=== PATIENT | male | born 1945 | race Caucasian/White ===

== ENCOUNTER 2018-04-01 16:49 | Emergency (ER) | payer OTHER ==
--- NOTE | 2018-04-01 17:47 | ER ---
Nurse's Notes [facility] Name: Herberth Carrasco Age: 72 yrs Sex: Male : 1945 Arrival Date: 04/01/2018 Time: 16:53 Bed 9 Private MD: Diagnosis: Laceration without foreign body of left index finger without damage to nail-avulsion laceration Presentation: 04/01 17:05 Presenting complaint: Child states: Laceration to left index finger with screwdriver at hb 1030 today. Pt was sent from [facility] because laceration would not stop bleeding. Dressing is intact, clean, and dry. Transition of care: patient was not received from another setting of care. Complicating Factors: There are no complicating factors for this patient. Onset of symptoms was April 01, 2018. Risk Assessment: Do you want to hurt yourself or someone else? Patient reports no desire to harm self or others. Initial Sepsis Screen: Does the patient meet any 2 criteria? No. Patient's initial sepsis screen is negative. Does the patient have a suspected source of infection? No. Patient's initial sepsis screen is negative. Care prior to arrival: Bleeding of injury controlled. Injury dressed. 17:05 Method Of Arrival: Ambulatory hb 17:05 Acuity: GADIEL 4 hb Historical: - Allergies: 17:08 No Known Allergies; hb - Home Meds: 17:08 atorvastatin oral oral [Active]; hb - PMHx: 17:08 None; hb - PSHx: 17:08 None; hb - Immunization history:: Last tetanus immunization: < 5 years ago. - Social history:: Smoking status: Patient/guardian denies using tobacco. - Ebola Screening: : No symptoms or risks identified at this time. Screenin:33 Abuse screen: Denies threats or abuse. Denies injuries from another. Nutritional ss screening: No deficits noted. Tuberculosis screening: No symptoms or risk factors identified. Never had TB. Fall Risk None identified. Assessment: 17:33 General: Appears in no apparent distress. comfortable, Behavior is calm, cooperative. ss Pain: Complains of pain in dorsal aspect of middle phalanx of left index finger Pain currently is 3 out of 10 on a pain scale. Quality of pain is described as burning, tender, Is continuous. Neuro: Level of Consciousness is awake, alert, obeys commands, Oriented to person, place, time, situation. Cardiovascular: Capillary refill < 3 seconds is brisk in bilateral fingers Patient's skin is warm and dry. Pulses are palpable in right radial artery and left radial artery. Respiratory: Airway is patent Trachea midline Respiratory effort is even, unlabored, Respiratory pattern is regular, symmetrical. GI: Patient currently denies abdominal pain, nausea, vomiting. EENT: Oral mucosa is moist. Throat is clear. Derm: Skin is intact, is healthy with good turgor, Skin is dry, Skin is pink, warm \T\ dry. normal. Musculoskeletal: Circulation, motion, and sensation intact. Range of motion: intact in all extremities, Swelling absent. Injury Description: Avulsion sustained to palmar aspect of middle phalanx of left index finger. Vital Signs: 17:07 BP 148 / 78; Pulse 88; Resp 16; Temp 97.8; Pulse Ox 100% on R/A; Pain 3/10; hb ED Course: 16:53 Patient arrived in ED. rg4 17:06 Triage completed. hb 17:07 Arm band placed on. hb 17:21 Nicole Bautista FNP-C [facility]. kb 17:21 Nemesio Kirk MD is Attending Physician. kb 17:32 Sun Johnston, MAHENDRA is Primary Nurse. ss 17:33 Patient has correct armband on for positive identification. Bed in low position. Call ss light in reach. 17:42 No provider procedures requiring assistance completed. Patient did not have IV access ss during this emergency room visit. Wound care: located on palmar aspect of middle phalanx of left index finger was cleaned with soap and water, Patient tolerated well. Surgicel applied to affected area with sterile gauze and Coban wrapping. Administered Medications: No medications were administered Outcome: 17:46 Discharge ordered by . kb 18:20 Patient left the ED. dm5 18:20 Discharged to home ambulatory, with family. ss 18:20 Condition: good 18:20 Discharge instructions given to patient, family, Instructed on discharge instructions, follow up and referral plans. wound care, Demonstrated understanding of instructions, follow-up care, wound care. Signatures: Nicole Bautista FNP-C FNP-Ckb Markwardt, Deana, RN RN Sun Forde RN RN Diamond, Zayda, RN RN hb Adelfo, Nancie rg4
--- NOTE | 2018-04-01 17:47 | EDPHYS ---
Physician Documentation [facility] Name: Herberth Carrasco Age: 72 yrs Sex: Male : 1945 Arrival Date: 04/01/2018 Time: 16:53 Bed 9 Private MD: ED Physician Nemesio Kirk HPI: 04/01 17:43 This 72 yrs old Male presents to ER via Ambulatory with complaints of kb Laceration To Hand. 17:43 The patient has a laceration related to: working, screw helper/driver, occurred at work, and kb there are no complicating factors. The injury was accidental. The laceration(s) is(are) located on the dorsal aspect of middle phalanx of left index finger. Onset: The symptoms/episode began/occurred just prior to arrival. Associated signs and symptoms: Pertinent positives: heavy bleeding, Pertinent negatives: deformity, dizziness, loss of consciousness, numbness distal to injury, suspected foreign body. The patient has not experienced similar symptoms in the past. The patient has been recently seen at an urgent care, just prior to arrival, for similar complaints, and was sent to the [facility] Emergency Department for further evaluation. Pt reports his coworker was using a screw helper/driver and took off a chunk of skin from his finger. Went to and was told to come to the ER because the bleeding wouldn't stop. Bleeding controlled with pressure dressing at this time. . Historical: - Allergies: 17:08 No Known Allergies; hb - Home Meds: 17:08 atorvastatin oral oral [Active]; hb - PMHx: 17:08 None; hb - PSHx: 17:08 None; hb - Immunization history:: Last tetanus immunization: < 5 years ago. - Social history:: Smoking status: Patient/guardian denies using tobacco. - Ebola Screening: : No symptoms or risks identified at this time. ROS: 17:43 Constitutional: Negative for fever, chills, and weight loss, Cardiovascular: Negative kb for chest pain, palpitations, and edema, Respiratory: Negative for shortness of breath, cough, wheezing, and pleuritic chest pain, Abdomen/GI: Negative for abdominal pain, nausea, vomiting, diarrhea, and constipation, Back: Negative for injury and pain, MS/Extremity: Negative for injury and deformity, Neuro: Negative for headache, weakness, numbness, tingling, and seizure. 17:43 Skin: Positive for avulsion, of the dorsal aspect of middle phalanx of left index finger, Negative for Exam: 17:43 Constitutional: This is a well developed, well nourished patient who is awake, alert, kb and in no acute distress. Head/Face: Normocephalic, atraumatic. Chest/axilla: Normal chest wall appearance and motion. Nontender with no deformity. No lesions are appreciated. Cardiovascular: Regular rate and rhythm with a normal S1 and S2. No gallops, murmurs, or rubs. Normal PMI, no JVD. No pulse deficits. Respiratory: Lungs have equal breath sounds bilaterally, clear to auscultation and percussion. No rales, rhonchi or wheezes noted. No increased work of breathing, no retractions or nasal flaring. Abdomen/GI: Soft, non-tender, with normal bowel sounds. No distension or tympany. No guarding or rebound. No evidence of tenderness throughout. MS/ Extremity: Pulses equal, no cyanosis. Neurovascular intact. Full, normal range of motion. Neuro: Awake and alert, GCS 15, oriented to person, place, time, and situation. Cranial nerves II-XII grossly intact. Motor strength 5/5 in all extremities. Sensory grossly intact. Cerebellar exam normal. Normal gait. 17:43 Skin: injury, avulsion(s), a small of the dorsal aspect of middle phalanx of left index finger. Vital Signs: 17:07 BP 148 / 78; Pulse 88; Resp 16; Temp 97.8; Pulse Ox 100% on R/A; Pain 3/10; hb MDM: 17:22 Patient medically screened. kb 17:42 Data reviewed: vital signs, nurses notes. Data interpreted: Pulse oximetry: on room air kb is 100 %. Interpretation: normal. Counseling: I had a detailed discussion with the patient and/or guardian regarding: the historical points, exam findings, and any diagnostic results supporting the discharge/admit diagnosis, the need for outpatient follow up, a family practitioner, to return to the emergency department if symptoms worsen or persist or if there are any questions or concerns that arise at home. 04/01 17:26 Order name: Wound dressing; Complete Time: 17:32 kb Administered Medications: No medications were administered Disposition: 04/01/18 17:46 Discharged to Home. Impression: Laceration without foreign body of left index finger without damage to nail - avulsion laceration. - Condition is Stable. - Discharge Instructions: Laceration Care, Adult, [id number]. - Medication Reconciliation Form, Thank You Letter, Antibiotic Education, Prescription Opioid Use form. - Follow up: Emergency Department; When: As needed; Reason: Worsening of condition. Follow up: Private Physician; When: 2 - 3 days; Reason: Recheck today's complaints, Continuance of care, Re-evaluation by your physician. Addendum: 04/08/2018 09:33 Co-signature as Attending Physician, Nemesio Kirk MD I agree with the assessment and k dr plan of care. Signatures: Nicole Bautista, RL-C RL-Carisa Rawls, RN RN dm5 Nemesio Kirk MD MD [facility] Zayda Diamond RN RN Corrections: (The following items were deleted from the chart) 04/01 18:20 17:46 04/01/2018 17:46 Discharged to Home. Impression: Laceration without foreign body dm5 of left index finger without damage to nail - avulsion laceration. Condition is Stable. Forms are Medication Reconciliation Form, Thank You Letter, Antibiotic Education, Prescription Opioid Use. Follow up: Emergency Department; When: As needed; Reason: Worsening of condition. Follow up: Private Physician; When: 2 - 3 days; Reason: Recheck today's complaints, Continuance of care, Re-evaluation by your physician. kb
== END 2018-04-01 18:20 | disposition home or self-care (01) ==
LOC: ER 16:49
DX: S61.213A Laceration without foreign body of left middle finger without damage to nail, initial encounter (principal); W27.0XXA Contact with workbench tool, initial encounter

== ENCOUNTER 2018-08-06 09:11 | Day surgery (SDC) | payer OTHER ==
--- NOTE | 2018-08-05 09:00 | RAD REPORT ---
EXAM DESCRIPTION: RAD - Chest Pa And Lat (2 Views) - 08/05/2018 8:55 am CLINICAL HISTORY: Preop chest examination, patient pending soft tissue mass removal near the left cl avicle COMPARISON: None. TECHNIQUE: PA and lateral views of the chest were obtained. FINDINGS: The lungs are clear. Heart size is normal and central vasculature is within normal limit s. No pleural effusion or pneumothorax seen. No acute bony finding noted. No aortic abnormality. IMPRESSION: No acute cardiopulmonary process.
[2018-08-05 09:40] LABS: Absolute Lymphocytes (CBC) 1.4 K/uL (0.7-4.9); Absolute Monocytes 0.4 K/uL (0.1-1.3); Absolute Neutrophil 3.2 K/uL (1.8-8.0); Eosinophils % 1.2 % (0-4.4); Hematocrit 42.7 % (39.6-49.0); Lymphocytes % 27.2 % (15.3-44.8); MPV 8.4 fL (7.6-11.3); Monocytes % 7.6 % (3.3-12.3); RBC Red Blood Cell Count 5.04 M/uL (4.33-5.43)
[2018-08-05 09:51] LABS: Potassium 4.2 mmol/L (3.5-5.1)
--- NOTE | 2018-08-05 16:31 | EKG ---
Test Date: 2018-08-05 Test Time: 08:31:05 Bodybuilder: SARAH MEASUREMENT RESULTS: Intervals: Rate: 66 TN: 170 QRSD: 86 QT: 394 QTc: 413 Kiefer: P: 53 TN: 170 QRS: -46 T: 32 INTERPRETIVE STATEMENTS: Normal sinus rhythm Left axis deviation Abnormal ECG No previous ECG available for comparison Electronically Signed On 08-05-18 16:30:36 CDT by Soham Tovar
[2018-08-06] MEDS ORDERED: Ringers Lactate 1,000 ML IV ONE (09:42)
[2018-08-06] MEDS: CEFAZOLIN/SWI 1gm 1 GM/10 ML SYR ONE ×2 (10:03→10:45)
[2018-08-06] MEDS ORDERED: PROPOFOL 200 MG/20 ML VIAL IV ONE (10:39)
[2018-08-06] MEDS ORDERED: FENTANYL CITR 100 MCG/2 ML ONE (10:40)
[2018-08-06] MEDS ORDERED: MIDAZOLAM HCL 2 MG/2 ML INJ ONE (10:40)
[2018-08-06] MEDS ORDERED: LIDOCAINE 2% MPF 5 ML VIAL ONE (10:41)
--- NOTE | 2018-08-06 13:35 | OP ---
Date of Procedure: 08/06/2018 Surgeon: Yuri Brannon MD Disc Jockey: HEATHER Gomez. Preoperative Diagnosis: Inflamed sebaceous cyst, left chest wall. Postoperative Diagnosis: Inflamed sebaceous cyst, left chest wall. Procedure: Wide excision, inflamed sebaceous cyst, left chest wall, 8 x 4 cm, with layered closure. Estimated Blood Loss: Minimal. Specimen Obtained: Sebaceous cyst. Findings: Above. Anesthesia: General. Complications: None. Disposition: The patient tolerated the procedure in stable condition, taken to Recovery in good gene ral condition. Procedure In Detail: The patient was brought to the OR and placed in supine position. General anest hesia begun. The patient was prepped and draped in usual sterile fashion. Marcaine 0.5% was infiltr ated locally. A 15-blade was used to make an 8 x 4 cm incision to excise the entire cyst wall and an inflated cyst that was present. Subcutaneous tissue divided and then the entire cyst excised and se nt to Pathology as specimen. Wound irrigated. Bleeding controlled cautery. Flaps created and 2-0 c hromic used to approximate the subcutaneous tissue, and 2-0 Prolene used to loosely reapproximate the skin. Sterile dressing applied. The patient was awakened and taken to Recovery in good general cond ition. /MODL Voice ID: [id number] Report ID: [id number]
--- NOTE | 2018-08-06 13:41 | DS ---
The patient will go to Day Surgery and home when stable. Disposition: Home. Condition: Stable. Discharge Instructions: Resume home medications and diet. Activity as tolerated. No heavy lifting. Remove outer dressing in 2 days. Shower. Keep wound clean and dry. Keflex 500 mg p.o. q.6. Tyle nol No. 3 one tablet p.o. q.4 p.r.n. pain. Follow up in my office in 10 days, call for appointment. ANAM Voice ID: [id number] Report ID: [id number]
== END 2018-08-06 12:29 | disposition home or self-care (01) ==
LOC: OR 09:11
PROVIDERS: ATTEND Surgery
PROC: 0JB60ZZ Excision of Chest Subcutaneous Tissue and Fascia, Open Approach (ICD-10-PCS; principal; 2018-08-06 11:30)
DX: L72.3 Sebaceous cyst (principal)
CPT/HCPCS: 93005; 85025; 80048; 36415; 88304; 71046; 11406; J2704; J2250; J3010; J0690; 88305